=== PATIENT | female | born 1990 | race African-American/Black ===

== ENCOUNTER 2021-10-25 13:15 | Emergency (ER) | payer OTHER ==
[~2021-10-25] VITALS: Ht 165.1 cm; Wt 45.4 kg
[2021-10-25 13:22] VITALS: BP 139/86
--- NOTE | 2021-10-25 13:33 | NUR ---
[employer] AT BEDSIDE
--- NOTE | 2021-10-25 13:56 | NUR ---
Medically cleared by ER provider and escorted by [employer] to [facility] Patient discharged in stable condition. Written and verbal after care instructions given. Patient verbalizes understanding of instruction.
== END 2021-10-25 13:58 ==
LOC: ER 13:29
DX: T76.21XA Adult sexual abuse, suspected, initial encounter (principal); Z60.2 Problems related to living alone